=== PATIENT | female | born 1980 | race Caucasian/White ===

== ENCOUNTER 2018-10-21 09:39 | Emergency (ER) | payer OTHER ==
[2018-10-21 09:42] VITALS: BP 122/75; PULSE 77; RESP 15; TEMP 98.6; O2SAT 99
[2018-10-21 09:43] VITALS: BMI 31.7
--- NOTE | 2018-10-21 11:09 | ED PDOC ---
HPI: General Adult Time Seen by Provider: 10/21/18 10:23 Chief Complaint (Nursing): Flu-like Symptoms Chief Complaint (Provider): sore throat, fever History Per: Patient History/Exam Limitations: no limitations Additional Complaint(s): 38 y/o F with no significant PMH who presents with sore throat and subjective fever x 5 days. Pt states that she began having a sore throat 5 days ago and then a subjective fever the following 2 days as well as some body aches. Denies chills, night sweats, diarrhea, N/V. She has not received Influenza vaccine. She last took Motrin last night and this morning took Azithromycin 250mg x 1 given to her by her [id number]. States that swallowing is very painful but has been able to drink fluids and is urinating normally. Past Medical History Reviewed: Historical Data, Nursing Documentation, Vital Signs Vital Signs: Last Vital Signs Temp 98.6 F 10/21/18 09:42 Pulse 77 10/21/18 09:42 Resp 15 10/21/18 09:42 BP 122/75 10/21/18 09:42 Pulse Ox 99 10/21/18 09:42 - Medical History PMH: No Chronic Diseases - Family History Family History: States: Unknown Family Hx - Home Medications Home Medications: Ambulatory Orders Medication Instructions Recorded Azithromycin 250 mg PO DAILY #4 tablet 10/21/18 Ibuprofen [Motrin Tab] 600 mg PO Q6 PRN 7 Days tab 10/21/18 - Allergies Allergies/Adverse Reactions: Allergies Allergy/AdvReac Type Severity Reaction Status Date / Time No Known Allergies Allergy Verified 10/21/18 09:47 Review of Systems Constitutional: Positive for: Fever. Negative for: Chills, Sweats, Weakness ENT: Positive for: Throat Pain Cardiovascular: Negative for: Chest Pain Respiratory: Negative for: Cough, Shortness of Breath Gastrointestinal: Negative for: Nausea, Vomiting, Diarrhea Physical Exam - Reviewed Nursing Documentation Reviewed: Yes Vital Signs Reviewed: Yes - Physical Exam Appears: Positive for: Non-toxic Skin: Positive for: Normal Color ENT: Positive for: TM Is/Are (normal B/L), Pharyngeal Erythema (mild pharyngeal erythema). Negative for: Sinus Pain/Drainage, Tonsillar Exudate, Tonsillar Swelling Cardiovascular/Chest: Positive for: Regular Rate, Rhythm Respiratory: Positive for: Normal Breath Sounds Gastrointestinal/Abdominal: Positive for: Normal Exam Lymphatic: Positive for: Normal Exam Neurological/Psych: Positive for: Awake, Alert, Oriented - ECG O2 Sat by Pulse Oximetry: 99 Medical Decision Making Medical Decision Making: Rapid flu, Rapid Strep Ibuprofen 600mg PO x 1 Urine preg Disposition - Clinical Impression Clinical Impression: Pharyngitis - Patient ED Disposition Is Patient to be Admitted: No Counseled Patient/Family Regarding: Studies Performed, Diagnosis, Need For Followup - Disposition Referrals: [facility] [Outside] Disposition: Routine/Home Disposition Time: 12:22 Condition: STABLE Additional Instructions: Follow up with primary care doctor if symptoms persist. Complete full course of antibiotics. Take Ibuprofen and Tylenol for pain. Return to ER if your symptoms worsen or are unable to drink fluids. Prescriptions: Azithromycin 250 mg PO DAILY #4 tablet Ibuprofen [Motrin Tab] 600 mg PO Q6 PRN 7 Days tab PRN Reason: Pain, Moderate (4-7) Instructions: Sore Throat, Adult (DC) Forms: [employer] (Chadian) Print Language: DOMINICAN
== END 2018-10-21 12:22 | disposition home or self-care (01) ==
LOC: H.ER 09:39
DX: J02.9 Acute pharyngitis, unspecified (principal)